=== PATIENT | female | born 1975 | race Caucasian/White ===

== ENCOUNTER 2024-04-16 18:55 | Emergency (ER) | payer OTHER, SELFPAY ==
[2024-04-16] VITALS (12 sets, daily range): BP systolic 127–161; BP diastolic 78–98; PULSE 66–83; TEMP 36.8; O2SAT 92–98; BMI 29.9
--- NOTE | 2024-04-16 20:34 | ECG_ITS ---
[facility] Test Date: 2024-04-16 Pat Name: CLARISSA DELUNA Department: Room: - Gender: Female [employer] [place]: : 1975 Requested By: Order Number: [id number] Reading MD: NGUYEN PHAN Measurements Intervals [place] Rate: 73 P: 51 [place]: 142 QRS: 77 QRSD: 90 T: 29 QT: 416 QTc: 442 Interpretive Statements 1100 Sinus rhythm Inferior Q waves, can't exclude remote [place] 9110 normal ECG No previous ECG available for comparison Electronically Signed On 04-19-2024 12:31:33 EDT by NGUYEN PHAN
--- NOTE | 2024-04-16 20:43 | ED_ITS ---
HPI HPI - General Adult General Chief complaint: Alcohol Stated complaint: Anxiety/Situational Crisis Time Seen by Provider: 04/16/24 20:10 Source: patient Mode of arrival: walk-in Limitations: no limitations History of Present Illness HPI narrative: 49-year-old female to the emergency department with chief complaint of alcohol withdrawal. Patient reports that she just found out she is going to be a grandma and she has early cirrhosis and she would like to stop drinking so that she can be around for her family. She reports that she has tried rehab before but her sobriety only lasted 5 months. She reports that she would like to stop drinking but needs help. She reports that she drinks 1.5L of vodka a day. She denies . She denies any other drug use Past medical history: Reflux, depression, alcohol use disorder Surgical history: None Related Data Home Medications ?Medication ?Instructions ?Recorded ?Confirmed escitalopram oxalate 10 mg tablet 10 mg PO DAILY 04/16/24 04/16/24 (Lexapro) ibuprofen 200 mg tablet (Advil) 600 mg PO QAM 04/16/24 04/16/24 metoprolol succinate 25 mg 25 mg PO DAILY 04/16/24 04/16/24 tablet,extended release 24 hr (Toprol XL) omeprazole 20 mg capsule,delayed 20 mg PO DAILY 04/16/24 04/16/24 release Allergies Allergy/AdvReac Type Severity Reaction Status Date / Time No Known Drug Allergies Allergy Verified 04/16/24 19:22 Opioid HPI Opioid Management Most Recent Opioid Data: Ur Phencyclidine Scrn Negative (NEGATIVE) 04/16/24 20:47 03/31 01/21 Review of Systems ROS Status of ROS 10 or more systems reviewed and unremark able except as noted in history and below PFSH PFSH Social History Little interest or pleasure in doing things: several days Feeling down, depressed, or hopeless: several days Exam Narrative Exam Narrative: VITALS: I have reviewed the triage vital signs. GENERAL: Anxious and tearful adult female in no distress NEURO: Alert and oriented x4. Moves all extremities. Face is symmetric and expressive. Normal gait. Mild tremor. EYES: PERRL. No scleral icterus or conjunctival injection. No discharge. HENT: Normocephalic, atraumatic. Hearing is grossly intact. Nares grossly patent and without discharge. Mucous membranes moist. NECK: No JVD. Patient moves neck without restriction. CARDIO: Rhythm regular. Normal rate. No murmur, rub, or gallop. Pulses equal bilaterally in the upper and lower extremity. No lower extremity edema. PULM: Lungs clear to auscultation in all [place]. No wheezes, rales, or rhonchi. No conversational dyspnea. No splinting, stridor, or accessory muscle use. GI/: Abdomen is soft and non-tender. Normoactive bowel sounds. EXTREMITIES: Symmetric muscle bulk. No joint swelling. No clubbing, cyanosis, or deformity. SKIN: Warm and dry. Normal turgor. No rash or lesions appreciated. PSYCH: Anxious, tearful Constitutional Vital Signs, click to edit/add: Last Vital Signs Temp 98.2 F 04/16/24 19:24 Pulse 76 04/17/24 06:00 Resp 21 H 04/17/24 06:00 BP 139/93 H 04/17/24 06:00 Pulse Ox 97 04/17/24 06:00 O2 Del Method Room Air 04/16/24 19:24 Course Vital Signs Vital signs: Vital Signs Temperature 98.2 F 04/16/24 19:24 Pulse Rate 83 04/16/24 19:24 Respiratory Rate 18 04/16/24 19:24 Blood Pressure 146/98 H 04/16/24 19:24 Pulse Oximetry 97 04/16/24 19:24 Oxygen Delivery Method Room Air 04/16/24 19:24 Temperature 98.2 F 04/16/24 19:24 Pulse Rate 76 04/17/24 06:00 Respiratory Rate 21 H 04/17/24 06:00 Blood Pressure 139/93 H 04/17/24 06:00 Pulse Oximetry 97 04/17/24 06:00 Oxygen Delivery Method Room Air 04/16/24 19:24 Medical Decision Making MDM Narrative Medical decision making narrative: Well-appearing 49-year-old female to the emergency department chief complaint of alcohol withdrawal. She is requesting rehab placement. Vital stable, the patient is afebrile. Will order basic labs. Oral Ativan is ordered. Patient agrees with this plan. Lab work is unremarkable. Several rehab facilities were contacted. None can process her admission until admin arrives in the morning. Patient agrees to port overnight in the emergency department with plan for discharge to accepting rehabilitation facility tomorrow. She remained in mild withdrawal, Ativan was given. Care was signed out to Dr. Mcdowell. Medical Records Medical records reviewed: Yes I reviewed the patient's medical records Lab Data Lab results reviewed: Yes I reviewed the patient's lab results Labs: Lab Results 04/16/24 04/16/24 Range/Units 20:47 21:00 WBC 6.7 (4.0-11.0) 10^3/uL RBC 4.49 (4.20-5.40) 10^6/uL Hgb 13.9 (12.0-16.0) g/dL Hct 40.6 (36.0-48.0) % MCV 90.4 (81.0-99.0) fL MCH 31.0 (26.7-34.0) pg MCHC 34.2 (29.9-35.2) g/dL RDW 12.9 (11.0-15.0) % Plt Count 274 (150-450) 10^3/uL MPV 9.5 (9.5-13.5) fL Neut % (Auto) 42.8 L (43.0-75.0) % Lymph % (Auto) 43.1 (20.5-60.0) % [place] % (Auto) 7.0 (1.7-12.0) % Eos % (Auto) 3.7 (0.9-7.0) % Baso % (Auto) 3.3 H (0.2-2.0) % Neut # (Auto) 2.9 (1.4-6.5) 10^3/uL Lymph # (Auto) 2.9 (1.2-3.8) 10^3/uL [place] # (Auto) 0.5 (0.3-0.8) 10^3/uL Eos # (Auto) 0.3 (0.0-0.7) 10^3/uL Baso # (Auto) 0.2 H (0.0-0.1) 10^3/uL Abs Immat Gran (auto) 0.01 (0.00-0.03) 10^3/uL Imm/Tot Granulo (auto) 0.1 (0.0-0.5) % Sodium 142 (136-145) mmol/L Potassium 3.8 (3.5-5.1) mmol/L Chloride 102 (98-107) mmol/L Carbon Dioxide 24.7 (21.0-32.0) mmol/L Anion Gap 19.1 BUN 13.0 (7.0-18.0) mg/dL Creatinine 0.89 (0.55-1.02) mg/dL Est GFR ( Amer) >60 (>=60 mL/min/1.73m^2) Est GFR (Non-Af Amer) >60 (>=60 mL/min/1.73m^2) BUN/Creatinine Ratio 14.6 Glucose 73 L (74-106) mg/dL Calcium 10.0 (8.5-10.1) mg/dL Total Bilirubin 0.5 (0.2-1.0) mg/dL AST 107 H (15-37) U/L ALT 74 H (14-59) U/L Alkaline Phosphatase 68 (46-116) U/L Total Protein 8.1 (6.4-8.2) g/dL Albumin 4.3 (3.4-5.0) g/dL Globulin 3.8 g/dL Albumin/Globulin Ratio 1.1 Urine Color Yellow (YELLOW) Urine Clarity Clear (CLEAR) Urine pH 6.0 (5.0-9.0) Ur Specific [place] 1.025 (1.005-1.025) Urine Protein Trace (NEG/TRACE) mg/dL Urine Glucose (UA) Negative (NEGATIVE) mg/dL Urine Ketones Trace A (NEGATIVE) mg/dL Urine Occult Blood Negative (NEGATIVE) Urine Nitrite Negative (NEGATIVE) Urine Bilirubin Negative (NEGATIVE) Urine Urobilinogen 1.0 (0.2-1.0) EU/dL Ur Leukocyte Esterase Negative (NEGATIVE) Urine Opiates Screen Negative (NEGATIVE) Ur Buprenorphine Scrn Negative (NEGATIVE) Ur Oxycodone Screen Negative (NEGATIVE) Urine Methadone Screen Negative (NEGATIVE) Ur Barbiturates Screen Negative (NEGATIVE) U Tricyclic Antidepress Negative (NEGATIVE) Ur Phencyclidine Scrn Negative (NEGATIVE) Ur Amphetamines Screen Negative (NEGATIVE) U Methamphetamines Scrn Negative (NEGATIVE) U Benzodiazepines Scrn Negative (NEGATIVE) Urine Cocaine Screen Negative (NEGATIVE) U Cannabinoids Screen Negative (NEGATIVE) Ethanol Quant 289 mg/dL Discharge Plan Discharge Chief Complaint: Alcohol Clinical Impression: Alcohol withdrawal syndrome Patient Disposition: Still a Patient Prescriptions / Home Meds: No Action metoprolol succinate [Toprol XL] 25 mg tablet extended release 24 hr 25 mg PO DAILY escitalopram oxalate [Lexapro] 10 mg tablet 10 mg PO DAILY omeprazole 20 mg capsule,delayed release(DR/EC) 20 mg PO DAILY ibuprofen [Advil] 200 mg tablet 600 mg PO QAM Print Language: Setswana Referrals: Physician,Non-Staff, MD [Primary Care Provider] - 1 week
--- NOTE | 2024-04-16 21:11 | PC.NURSE ---
this patient standing up inthe room, i introduce myself to patient and mother. this patient voices ' I need help from drinking patient states she drink 2 pints of vodka a day but today only one pint
[2024-04-16 21:12] LABS: Basophils Absolute Auto 0.2 10^3/uL (0.0-0.1); Basophils Percent Auto 3.3 % (0.2-2.0); Eosinophils Absolute Auto 0.3 10^3/uL (0.0-0.7); Eosinophils Percent Auto 3.7 % (0.9-7.0); Hematocrit 40.6 % (36.0-48.0); Hemoglobin 13.9 g/dL (12.0-16.0); Immature Granulocytes Abs Auto 0.01 10^3/uL (0.00-0.03); Immature Granulocytes Pct Auto 0.1 % (0.0-0.5); Lymphocytes Absolute Auto 2.9 10^3/uL (1.2-3.8); Lymphocytes Percent Auto 43.1 % (20.5-60.0); Mean Corpuscular HGB Conc 34.2 g/dL (29.9-35.2); Mean Corpuscular Volume 90.4 fL (81.0-99.0); Mean Platelet Volume 9.5 fL (9.5-13.5); Monocytes Absolute Auto 0.5 10^3/uL (0.3-0.8); Neutrophils Absolute Auto 2.9 10^3/uL (1.4-6.5); Neutrophils Percent Auto 42.8 % (43.0-75.0); Platelet Count 274 10^3/uL (150-450); Red Blood Count 4.49 10^6/uL (4.20-5.40); Red Cell Distribution Width 12.9 % (11.0-15.0); White Blood Count 6.7 10^3/uL (4.0-11.0)
[2024-04-16 21:19] LABS: Bilirubin Urine NEGATIVE (NEGATIVE); Blood Urine NEGATIVE (NEGATIVE); Clarity Urine CLEAR (CLEAR); Color Urine YELLOW (YELLOW); Glucose Urine UA NEGATIVE (NEGATIVE); Ketones Urine TRACE mg/dL (NEGATIVE); Leukocyte Esterase Urine NEGATIVE (NEGATIVE); Nitrite Urine NEGATIVE (NEGATIVE); Protein Urine TRACE mg/dL (NEG/TRACE); Specific Gravity Urine 1.025 (1.005-1.025)
[2024-04-16] MEDS: LORAZEPAM 1 MG TABLET 2 MG PO (21:22)
[2024-04-16 21:26] LABS: Urine Microscopic Indicated NO
[2024-04-16 21:30] LABS: Amphetamine Screen Urine NEGATIVE (NEGATIVE); Benzodiazepines Screen Urine NEGATIVE (NEGATIVE); Buprenorphine Screen Urine NEGATIVE (NEGATIVE); Cannabinoid Screen Urine NEGATIVE (NEGATIVE); Cocaine Screen Urine NEGATIVE (NEGATIVE); Methadone Screen Urine NEGATIVE (NEGATIVE); Methamphetamines Screen Urine NEGATIVE (NEGATIVE); Opiate Screen Urine NEGATIVE (NEGATIVE); Oxycodone Screen Urine NEGATIVE (NEGATIVE); Phencyclidine Screen Urine NEGATIVE (NEGATIVE); Tricyclic Antidepressant Urine NEGATIVE (NEGATIVE)
[2024-04-16 21:31] LABS: Barbiturates Screen Urine NEGATIVE (NEGATIVE)
[2024-04-16 21:37] LABS: Alanine Aminotransferase 74 U/L (14-59); Albumin Globulin Ratio 1.1; Albumin Level 4.3 g/dL (3.4-5.0); Alkaline Phosphatase 68 U/L (46-116); Anion Gap 19.1; Aspartate Amino Transferase 107 U/L (15-37); BUN Creatinine Ratio 14.6; Bilirubin Total 0.5 mg/dL (0.2-1.0); Carbon Dioxide 24.7 mmol/L (21.0-32.0); Chloride 102 mmol/L (98-107); Estimated GFR (African America >60 (>=60 mL/min/1.73m^2); Estimated GFR (Non-African Ame >60 (>=60 mL/min/1.73m^2); Ethanol 289 mg/dL; Globulin 3.8 g/dL; Glucose 73 mg/dL (74-106); Potassium 3.8 mmol/L (3.5-5.1); Sodium 142 mmol/L (136-145); Total Protein 8.1 g/dL (6.4-8.2)
[2024-04-16] MEDS: THIAMINE MONONITRATE (VIT B1) 100 MG TABLET PO (21:42)
[2024-04-16] MEDS: MULTIVITAMIN TABLET 1 TAB PO (21:42)
[2024-04-17] VITALS (19 sets, daily range): BP systolic 115–162; BP diastolic 72–98; PULSE 60–103; TEMP 37.2; O2SAT 92–100
--- NOTE | 2024-04-17 00:56 | PC.NURSE ---
i called [facility] and spoke will Robert about accepting this patient. Robert said we stop accepting patient at 9:00 pm tonight, so tomorrow around 09:00 am we will call this patient on her cell phone to ask her some basic questions this part of the admission process
[2024-04-17] MEDS: IBUPROFEN 600 MG TABLET PO (06:28)
[2024-04-17] MEDS: LORAZEPAM 0.5 MG TABLET 2 MG PO (06:28)
== END 2024-04-17 09:48 | disposition home or self-care (01) ==
PROVIDERS: Emergency Provider Student in an Organized Health Care Education/Training Program
DX: F10.239 Alcohol dependence with withdrawal, unspecified (principal); Y90.8 Blood alcohol level of 240 mg/100 ml or more
CPT/HCPCS: 36415; 80053; 80307; 80320; 81003; 85025; 93005; 99284

== ENCOUNTER 2025-06-11 13:08 | Emergency (ER) | payer MEDICAID, SELFPAY ==
[2025-06-11 13:17] VITALS: BP 141/102; PULSE 97; TEMP 37.1; O2SAT 97; BMI 29.8
[2025-06-11 13:56] LABS: Glucose Urine UA 100 mg/dL (NEGATIVE)
[2025-06-11] MEDS: KETOROLAC TROMETHAMINE 60 MG/2 ML VIAL IM (14:24)
[2025-06-11] MEDS: PHENAZOPYRIDINE 100 MG TABLET PO (14:24)
[2025-06-11 14:25] LABS: Cast Seen? NONE SEEN #/LPF (NONE SEEN); Crystals Seen? None Seen #/HPF (None Seen); Urine Culture Indicated YES-FRMC
--- NOTE | 2025-07-02 09:42 | ED_ITS ---
HPI HPI - General Adult General Chief complaint: Urogenital-Female Stated complaint: BLOOD IN URINE UTI SYMPTOMS Time Seen by Provider: 06/11/25 13:30 Source: patient Mode of arrival: walk-in Limitations: no limitations History of Present Illness HPI narrative: 50-year-old female presents emergency room chief complaint dysuria and hematuria. Patient states symptoms began previous day. She denies any fevers or chills. States she had minimal flank pain. Patient is afebrile at this time and nontoxic-appearing denies nausea vomiting. Related Data Home Medications ?Medication ?Instructions ?Recorded ?Confirmed escitalopram oxalate 10 mg tablet 10 mg PO DAILY 04/1604/16/24 (Lexapro) ibuprofen 200 mg tablet (Advil) 600 mg PO QAM 04/16/24 04/16/24 metoprolol succinate 25 mg 25 mg PO DAILY 04/16/24 tablet,extended release 24 hr (Toprol XL) omeprazole 20 mg capsule,delayed 20 mg PO DAILY 04/16/24 release Previous Rx's ?Medication ?Instructions ?Recorded cephalexin 500 mg capsule 500 mg PO BID 10 days #20 ca ps 06/11/25 ibuprofen 800 mg tablet 800 mg PO Q8H PRN pain #30 t abs 06/11/25 phenazopyridine 200 mg tablet 200 mg PO Q8H 6 doses #6 tabs 06/11/25 (Pyridium) Allergies Allergy/AdvReac Type Severity Reaction Status Date / Time No Known Drug Allergies Allergy Verified 04/16/24 19:22 Opioid HPI Opioid Management Most Recent Opioid Data: Last Pain Scale 0 04/17/24, 07:03 Ur Phencyclidine Scrn, (NEGATIVE) Negative , 20:47 Review of Systems ROS Status of ROS 10 or more systems reviewed and unremark able except as noted in history and below PFSH PFSH Social History Little interest or pleasure in doing things: not at all Feeling down, depressed, or hopeless: not at all Exam Narrative Exam Narrative: All Systems are negative except as noted/marked.All systems reviewed and otherwise negative Nurses note and vital signs reviewed and patient is not hypoxic. General: The patient appears well and in no apparent distress. Patient is resting comfortably on cart. Skin: Warm, dry, no pallor noted. There is no rash noted. Head: Normocephalic, atraumatic Eye: Normal conjunctiva, no drainage, EOMI. PERRL Ears, Nose, Mouth, and Throat: oral mucosa is moist. Nares patent. Mouth without vesicles. Ear canals patent. Tm's without Erythema Cardiovascular: Regular Rate and Rhythm Respiratory: Patient is in no distress, no accessory muscle use, lungs are clear to auscultation, no wheezing, rales or rhonchi Back: non-tender, no CVA tenderness bilaterally to percussion. GI: Normal bowel sounds, no tenderness to palpation, no masses appreciated. No rebound, guarding, or rigidity noted. Musculoskeletal: The patient has no evidence of calf tenderness, no pitting edema, symmetrical pulses noted bilaterally Neurological: A&O x4, normal speech Psychiatric: Cooperative Constitutional Vital Signs, click to edit/add: Last Vital Signs Temp 98.7 F 06/11/25 13:17 Pulse 97 H 06/11/25 13:17 Resp 18 06/11/25 13:17 BP 141/102 H 06/11/25 13:17 Pulse Ox 97 06/11/25 13:17 O2 Del Method Room Air 06/11/25 13:17 Course Vital Signs Vital signs: Vital Signs Temperature 98.7 F 06/11/25 13:17 Pulse Rate 97 H 06/11/25 13:17 Respiratory Rate 18 06/11/25 13:17 Blood Pressure 141/102 H 06/11/25 13:17 Pulse Oximetry 97 06/11/25 13:17 Oxygen Delivery Method Room Air 06/11/25 13:17 Temperature 98.7 F 06/11/25 13:17 Pulse Rate 97 H 06/11/25 13:17 Respiratory Rate 18 06/11/25 13:17 Blood Pressure 141/102 H 06/11/25 13:17 Pulse Oximetry 97 06/11/25 13:17 Oxygen Delivery Method Room Air 06/11/25 13:17 Medical Decision Making [facility] Narrative Medical decision making narrative: 50-year-old female presents emergency room chief complaint dysuria and hematuria. Patient states symptoms began previous day. She denies any fevers or chills. States she had minimal flank pain. Patient is afebrile at this time and nontoxic-appearing denies nausea vomiting. Patient presented here with urinary tract infection symptoms. Urinalysis positive for blood and nitrates. Patient was medicated and discharged home with prescription for Keflex and Pyridium as well as ibuprofen. Patient will follow- up primary care physician in after discharge. Patient in no questions discharge Assessment: Discussed. Patient verbalized understanding agrees with plan of care Differential Diagnosis Differential Diagnosis: UTI, urinary colic, stone, Medical Records Medical records reviewed: Yes I reviewed the patient's medical records Lab Data Lab results reviewed: Yes I reviewed the patient's lab results Labs: Lab Results 06/11/25 Range/Units 13:26 Urine Color Brown A (YELLOW) Urine Clarity Cloudy A (CLEAR) Urine pH 6.5 (5.0-9.0) Ur Specific [place] 1.025 (1.005-1.025) Urine Protein >=300 A (NEG/TRACE) mg/dL Urine Glucose (UA) 100 A (NEGATIVE) mg/dL Urine Ketones 15 A (NEGATIVE) mg/dL Urine Occult Blood Large A (NEGATIVE) Urine Nitrite Positive A (NEGATIVE) Urine Bilirubin Moderate A (NEGATIVE) Urine Urobilinogen >=8.0 (0.2-1.0) EU/dL Ur Leukocyte Esterase Moderate A (NEGATIVE) Urine RBC 75-100 A (0-2) #/HPF Urine WBC 50-75 A (NONE SEEN) #/HPF Ur Squamous Epith Cells Few A (NONE/RARE) #/LPF Urine Crystals None seen (None Seen) #/HPF Urine Bacteria Moderate A (NONE SEEN) #/HPF Urine Casts None seen (NONE SEEN) #/LPF Urine Mucus Trace A (NONE SEEN) Ur Culture Indicated? Yes-[facility] [place] Discharge Plan Discharge Chief Complaint: Urogenital-Female Clinical Impression: UTI (urinary tract infection) Patient Disposition: Home, Self-Care Time of Disposition Decision: 14:32 Condition: Good Prescriptions / Home Meds: New ibuprofen 800 mg tablet 800 mg PO Q8H PRN (Reason: pain) Qty: 30 0RF cephalexin 500 mg capsule 500 mg PO BID 10 Days Qty: 20 0RF phenazopyridine [Pyridium] 200 mg tablet 200 mg PO Q8H Qty: 6 0RF No Action metoprolol succinate [Toprol XL] 25 mg tablet extended release 24 hr 25 mg PO DAILY escitalopram oxalate [Lexapro] 10 mg tablet 10 mg PO DAILY omeprazole 20 mg capsule,delayed release(DR/EC) 20 mg PO DAILY ibuprofen [Advil] 200 mg tablet 600 mg PO QAM Print Language: Bhutanese Instructions: Urinary Tract Infection in Women (ED) Additional Instructions: follow up with your primary care physician. return to ER with increased fevers,nausea or vomiting. You have been given first dose of antibiotic in the er, you may start your antibiotic this evening. take until they are completely gone. A culture of your urine is being sent to assure the antibiotic given is appropriate for your infection Referrals: Physician,Non-Staff, MD [Primary Care Provider] - 1 week Discharge Date/Time: 06/11/25 14:51
== END 2025-06-11 14:51 | disposition home or self-care (01) ==
PROVIDERS: Physician Assistant; Emergency Provider Emergency Medicine
DX: N39.0 Urinary tract infection, site not specified (principal)
CPT/HCPCS: 81001; 87086; 87088; 87186; 96372; 99284; J1885